=== PATIENT | female | born 1950 | race Caucasian/White ===

== ENCOUNTER 2017-11-01 09:39 | Inpatient (IN) | payer MEDICARE, OTHER ==
[2017-11-01 10:16] LABS: ADD MAN DIFF? NO
[2017-11-01 10:18] LABS: WHITE BLOOD COUNT 7.8 10^3/ul (4.8-10.8)
[2017-11-01 10:18] LABS: BASOPHIL # 0.1 10^3/ul (0.0-0.1); BASOPHILS % 0.6 % (0.0-2.0); EOSINOPHILS # 0.2 10^3/ul (0.0-0.5); EOSINOPHILS % 2.3 % (0.0-7.0); HEMOGLOBIN 9.8 g/dl (12.0-16.0); LYMPHOCYTES # 1.4 10^3/ul (0.8-2.9); LYMPHOCYTES % 18.5 % (15.0-51.0); MEAN CORPUSCULAR HEMOGLOBIN 29.8 pg (29.0-33.0); MEAN CORPUSCULAR HGB CONC 29.7 g/dl (32.0-37.0); MEAN CORPUSCULAR VOLUME 100.3 fl (82.0-101.0); MONOCYTE # 0.5 10^3/ul (0.3-0.9); MONOCYTES % 6.7 % (0.0-11.0); NEUTROPHIL # 5.6 10^3/ul (1.6-7.5); NEUTROPHILS % 71.5 % (39.0-77.0); PLATELET COUNT 283 10^3/UL (140-415); RED BLOOD COUNT 3.29 10^6/ul (4.20-5.40)
[2017-11-01 10:38] LABS: INR 0.92; PROTIME 12.4 Sec (11.9-14.9)
[2017-11-01 10:56] LABS: ALANINE AMINOTRANSFERASE 24 IU/L (13-69); ALBUMIN 3.8 g/dl (3.3-4.9); ALBUMIN/GLOBULIN RATIO 1.08; ALKALINE PHOSPHATASE 64 IU/L (42-121); ANION GAP 18 (8-16); ASPARTATE AMINO TRANSFERASE 16 IU/L (15-46); BLOOD UREA NITROGEN 75 mg/dl (7-20); CALCIUM 9.6 mg/dl (8.4-10.2); CARBON DIOXIDE 28 mmol/L (21-31); CHLORIDE 100 mmol/L (97-110); CREATININE 6.01 mg/dl (0.44-1.00); GLUCOSE 90 mg/dl (70-220); POTASSIUM 5.4 mmol/L (3.5-5.1); SODIUM 141 mmol/L (135-144); TOTAL PROTEIN 7.3 g/dl (6.1-8.1)
[2017-11-01 11:07] LABS: TROPONIN-I 0.014 ng/ml (0.00-0.12)
[2017-11-01 12:12] LABS: OCCULT BLOOD STOOL POSITIVE (NEGATIVE)
[2017-11-01] MEDS ORDERED: ACETAMINOPHEN 325 MG TAB PO (13:30)
[2017-11-01] MEDS ORDERED: ONDANSETRON 4 MG INJ IV ×2 (13:30→16:30)
[2017-11-01] MEDS ORDERED: morphine 2 MG INJ IV (16:30)
[2017-11-01] MEDS ORDERED: ZOLPIDEM 5 MG TAB PO (16:30)
[2017-11-01] MEDS ORDERED: NACL 0.9% 3 ML SYG IV (16:30)
[2017-11-01] MEDS ORDERED: morphine LIQ (10 MG/5 ML) CUP PO (17:00)
[2017-11-01] MEDS: DEXTROSE 5%-0.45% NACL 1,000 ML IV (17:27)
[2017-11-01] MEDS: HYDROCODONE/APAP (7.5/325) TAB PO ×2 (17:28→21:28)
[2017-11-01] MEDS ORDERED: GABAPENTIN 300 MG CAP PO (21:00)
[2017-11-01] MEDS: MINERAL OIL 133 ML ENEMA PR (21:25)
[2017-11-01] MEDS: PEG/ELECTROLYTES 4L BTL PO (21:25)
[2017-11-01] MEDS: NA POLYST SULFON 15 GM/60 ML BTL PO (21:26)
[2017-11-01] MEDS: ATORVASTATIN 40 MG TAB PO (21:27)
[2017-11-01] MEDS: LACTULOSE 30ML CUP PO ×3 (21:27→23:48)
[2017-11-01] MEDS: FUROSEMIDE 40 MG TAB PO (21:27)
[2017-11-01] MEDS: METOPROLOL 25 MG TAB PO (21:30)
[2017-11-02] MEDS: HYDROCODONE/APAP (7.5/325) TAB PO ×6 (01:10→22:16)
[2017-11-02] MEDS: LACTULOSE 30ML CUP PO ×5 (01:10→22:16)
[2017-11-02] MEDS: PANTOPRAZOLE (EC) 40 MG TAB PO (04:46)
[2017-11-02] MEDS: DEXTROSE 5%-0.45% NACL 1,000 ML IV ×2 (06:15→17:28)
[2017-11-02 06:46] LABS: ADD MAN DIFF? NO
[2017-11-02 06:52] LABS: BASOPHILS % 0.4 % (0.0-2.0); EOSINOPHILS # 0.2 10^3/ul (0.0-0.5); EOSINOPHILS % 2.2 % (0.0-7.0); HEMATOCRIT 31.4 % (37.0-47.0); HEMOGLOBIN 9.2 g/dl (12.0-16.0); LYMPHOCYTES # 1.7 10^3/ul (0.8-2.9); LYMPHOCYTES % 19.3 % (15.0-51.0); MEAN CORPUSCULAR HEMOGLOBIN 29.5 pg (29.0-33.0); MEAN CORPUSCULAR HGB CONC 29.3 g/dl (32.0-37.0); MEAN CORPUSCULAR VOLUME 100.6 fl (82.0-101.0); MEAN PLATELET VOLUME 10.1 fl (7.4-10.4); MONOCYTE # 0.5 10^3/ul (0.3-0.9); NEUTROPHIL # 6.4 10^3/ul (1.6-7.5); NEUTROPHILS % 71.7 % (39.0-77.0); PLATELET COUNT 270 10^3/UL (140-415); RED BLOOD COUNT 3.12 10^6/ul (4.20-5.40); RED CELL DISTRIBUTION WIDTH 18.8 % (11.5-14.5)
[2017-11-02 07:23] LABS: ALANINE AMINOTRANSFERASE 21 IU/L (13-69); ALBUMIN 3.6 g/dl (3.3-4.9); ALBUMIN/GLOBULIN RATIO 1.16; ALKALINE PHOSPHATASE 64 IU/L (42-121); ANION GAP 17 (8-16); ASPARTATE AMINO TRANSFERASE 16 IU/L (15-46); BLOOD UREA NITROGEN 72 mg/dl (7-20); CARBON DIOXIDE 26 mmol/L (21-31); CHLORIDE 107 mmol/L (97-110); CREATININE 5.78 mg/dl (0.44-1.00); GLUCOSE 93 mg/dl (70-220); POTASSIUM 4.8 mmol/L (3.5-5.1); SODIUM 145 mmol/L (135-144); TOTAL PROTEIN 6.7 g/dl (6.1-8.1)
[2017-11-02] MEDS: METOPROLOL 25 MG TAB PO ×2 (09:00→22:16)
[2017-11-02] MEDS: FUROSEMIDE 40 MG TAB PO ×2 (09:00→22:17)
[2017-11-02 11:52] LABS: HEPATITIS B SURFACE ANTIGEN NEGATIVE (NEGATIVE)
[2017-11-02] MEDS: HEPARIN 1000 UNITS/ML 10 ML INJ CATHETER (15:20)
[2017-11-02] MEDS: ATORVASTATIN 40 MG TAB PO (22:16)
[2017-11-03] MEDS: HYDROCODONE/APAP (7.5/325) TAB PO ×7 (01:00→22:08)
[2017-11-03] MEDS: DEXTROSE 5%-0.45% NACL 1,000 ML IV ×3 (06:06→22:13)
[2017-11-03] MEDS: PANTOPRAZOLE (EC) 40 MG TAB PO (06:10)
[2017-11-03] MEDS: HEPARIN 1000 UNITS/ML 10 ML INJ CATHETER (08:04)
[2017-11-03] MEDS: FUROSEMIDE 40 MG TAB PO ×2 (08:53→22:08)
[2017-11-03] MEDS: METOPROLOL 25 MG TAB PO ×2 (08:53→22:09)
[2017-11-03] MEDS ORDERED: MIDAZOLAM 1 MG/ML 2 ML INJ (16:35)
[2017-11-03] MEDS ORDERED: LIDOCAINE 2% (SDV) 5 ML INJ (16:35)
[2017-11-03] MEDS ORDERED: PROPOFOL 20 ML (16:35)
[2017-11-03] MEDS ORDERED: FENTAnyl 50 MCG/ML VIAL (16:35)
[2017-11-03] MEDS: ATORVASTATIN 40 MG TAB PO (22:08)
[2017-11-04] MEDS: HYDROCODONE/APAP (7.5/325) TAB PO ×6 (01:00→23:09)
[2017-11-04] MEDS: DEXTROSE 5%-0.45% NACL 1,000 ML IV ×2 (06:25→11:42)
[2017-11-04] MEDS: PANTOPRAZOLE (EC) 40 MG TAB PO (06:46)
[2017-11-04 07:16] LABS: ADD MAN DIFF? NO
[2017-11-04 07:20] LABS: WHITE BLOOD COUNT 7.1 10^3/ul (4.8-10.8)
[2017-11-04 07:20] LABS: BASOPHILS % 0.4 % (0.0-2.0); EOSINOPHILS # 0.2 10^3/ul (0.0-0.5); EOSINOPHILS % 2.9 % (0.0-7.0); HEMATOCRIT 29.9 % (37.0-47.0); HEMOGLOBIN 8.9 g/dl (12.0-16.0); LYMPHOCYTES # 1.2 10^3/ul (0.8-2.9); LYMPHOCYTES % 17.4 % (15.0-51.0); MEAN CORPUSCULAR HEMOGLOBIN 30.2 pg (29.0-33.0); MEAN CORPUSCULAR HGB CONC 29.8 g/dl (32.0-37.0); MEAN CORPUSCULAR VOLUME 101.4 fl (82.0-101.0); MEAN PLATELET VOLUME 9.8 fl (7.4-10.4); MONOCYTE # 0.5 10^3/ul (0.3-0.9); MONOCYTES % 6.7 % (0.0-11.0); NEUTROPHIL # 5.2 10^3/ul (1.6-7.5); NEUTROPHILS % 72.3 % (39.0-77.0); PLATELET COUNT 230 10^3/UL (140-415); RED BLOOD COUNT 2.95 10^6/ul (4.20-5.40); RED CELL DISTRIBUTION WIDTH 18.9 % (11.5-14.5)
[2017-11-04 07:45] LABS: ANION GAP 12 (8-16); BLOOD UREA NITROGEN 20 mg/dl (7-20); CALCIUM 8.6 mg/dl (8.4-10.2); CARBON DIOXIDE 31 mmol/L (21-31); CHLORIDE 104 mmol/L (97-110); GLUCOSE 89 mg/dl (70-220); POTASSIUM 4.5 mmol/L (3.5-5.1); SODIUM 142 mmol/L (135-144)
[2017-11-04] MEDS: FUROSEMIDE 40 MG TAB PO ×2 (08:52→21:35)
[2017-11-04] MEDS: METOPROLOL 25 MG TAB PO ×2 (09:00→21:36)
[2017-11-04] MEDS: ATORVASTATIN 40 MG TAB PO (21:35)
[2017-11-05 06:06] LABS: ADD MAN DIFF? NO
[2017-11-05 06:09] LABS: WHITE BLOOD COUNT 6.7 10^3/ul (4.8-10.8)
[2017-11-05 06:09] LABS: BASOPHILS % 0.4 % (0.0-2.0); EOSINOPHILS # 0.3 10^3/ul (0.0-0.5); EOSINOPHILS % 3.7 % (0.0-7.0); HEMATOCRIT 27.9 % (37.0-47.0); HEMOGLOBIN 8.3 g/dl (12.0-16.0); LYMPHOCYTES # 1.6 10^3/ul (0.8-2.9); LYMPHOCYTES % 23.5 % (15.0-51.0); MEAN CORPUSCULAR HEMOGLOBIN 30.1 pg (29.0-33.0); MEAN CORPUSCULAR HGB CONC 29.7 g/dl (32.0-37.0); MEAN CORPUSCULAR VOLUME 101.1 fl (82.0-101.0); MEAN PLATELET VOLUME 10.2 fl (7.4-10.4); MONOCYTE # 0.5 10^3/ul (0.3-0.9); NEUTROPHIL # 4.4 10^3/ul (1.6-7.5); NEUTROPHILS % 65.1 % (39.0-77.0); PLATELET COUNT 228 10^3/UL (140-415); RED BLOOD COUNT 2.76 10^6/ul (4.20-5.40); RED CELL DISTRIBUTION WIDTH 18.6 % (11.5-14.5)
[2017-11-05] MEDS: PANTOPRAZOLE (EC) 40 MG TAB PO (06:30)
[2017-11-05] MEDS: HYDROCODONE/APAP (7.5/325) TAB PO ×3 (06:32→20:32)
[2017-11-05 06:41] LABS: ANION GAP 12 (8-16); BLOOD UREA NITROGEN 29 mg/dl (7-20); CALCIUM 8.5 mg/dl (8.4-10.2); CARBON DIOXIDE 29 mmol/L (21-31); CHLORIDE 105 mmol/L (97-110); CREATININE 4.13 mg/dl (0.44-1.00); GLUCOSE 79 mg/dl (70-220); POTASSIUM 4.7 mmol/L (3.5-5.1); SODIUM 141 mmol/L (135-144)
[2017-11-05] MEDS: METOPROLOL 25 MG TAB PO ×2 (09:00→20:31)
[2017-11-05] MEDS: FUROSEMIDE 40 MG TAB PO ×2 (09:00→20:31)
[2017-11-05] MEDS: HEPARIN 1000 UNITS/ML 10 ML INJ CATHETER (11:54)
[2017-11-05 18:12] LABS: ADD MAN DIFF? NO
[2017-11-05 18:15] LABS: BASOPHILS % 0.6 % (0.0-2.0); EOSINOPHILS # 0.2 10^3/ul (0.0-0.5); EOSINOPHILS % 3.6 % (0.0-7.0); HEMATOCRIT 29.6 % (37.0-47.0); HEMOGLOBIN 8.9 g/dl (12.0-16.0); LYMPHOCYTES # 1.7 10^3/ul (0.8-2.9); LYMPHOCYTES % 25.2 % (15.0-51.0); MEAN CORPUSCULAR HEMOGLOBIN 29.7 pg (29.0-33.0); MEAN CORPUSCULAR HGB CONC 30.1 g/dl (32.0-37.0); MEAN CORPUSCULAR VOLUME 98.7 fl (82.0-101.0); MONOCYTE # 0.4 10^3/ul (0.3-0.9); MONOCYTES % 6.1 % (0.0-11.0); NEUTROPHIL # 4.3 10^3/ul (1.6-7.5); NEUTROPHILS % 64.4 % (39.0-77.0); PLATELET COUNT 237 10^3/UL (140-415); RED CELL DISTRIBUTION WIDTH 18.3 % (11.5-14.5)
[2017-11-05 18:15] LABS: WHITE BLOOD COUNT 6.7 10^3/ul (4.8-10.8)
[2017-11-05] MEDS: ATORVASTATIN 40 MG TAB PO (20:31)
[2017-11-06 06:12] LABS: ADD MAN DIFF? NO
[2017-11-06 06:24] LABS: BASOPHILS % 0.5 % (0.0-2.0); EOSINOPHILS # 0.3 10^3/ul (0.0-0.5); EOSINOPHILS % 4.2 % (0.0-7.0); HEMATOCRIT 29.3 % (37.0-47.0); HEMOGLOBIN 8.8 g/dl (12.0-16.0); LYMPHOCYTES # 1.5 10^3/ul (0.8-2.9); LYMPHOCYTES % 22.2 % (15.0-51.0); MEAN CORPUSCULAR HEMOGLOBIN 29.6 pg (29.0-33.0); MEAN CORPUSCULAR VOLUME 98.7 fl (82.0-101.0); MEAN PLATELET VOLUME 9.9 fl (7.4-10.4); MONOCYTE # 0.5 10^3/ul (0.3-0.9); MONOCYTES % 6.8 % (0.0-11.0); NEUTROPHIL # 4.4 10^3/ul (1.6-7.5); PLATELET COUNT 216 10^3/UL (140-415); RED BLOOD COUNT 2.97 10^6/ul (4.20-5.40); RED CELL DISTRIBUTION WIDTH 18.2 % (11.5-14.5)
[2017-11-06 06:24] LABS: WHITE BLOOD COUNT 6.7 10^3/ul (4.8-10.8)
[2017-11-06] MEDS: PANTOPRAZOLE (EC) 40 MG TAB PO (06:36)
[2017-11-06] MEDS: HYDROCODONE/APAP (7.5/325) TAB PO ×3 (06:37→20:35)
[2017-11-06 06:42] LABS: ANION GAP 11 (8-16); BLOOD UREA NITROGEN 25 mg/dl (7-20); CALCIUM 8.6 mg/dl (8.4-10.2); CARBON DIOXIDE 31 mmol/L (21-31); CHLORIDE 103 mmol/L (97-110); CREATININE 3.46 mg/dl (0.44-1.00); GLUCOSE 97 mg/dl (70-220); POTASSIUM 4.4 mmol/L (3.5-5.1); SODIUM 141 mmol/L (135-144)
[2017-11-06] MEDS: METOPROLOL 25 MG TAB PO ×2 (09:00→20:34)
[2017-11-06] MEDS: FUROSEMIDE 40 MG TAB PO ×2 (09:54→20:33)
[2017-11-06] MEDS: SENNA TAB PO (20:33)
[2017-11-06] MEDS: ATORVASTATIN 40 MG TAB PO (20:34)
== END 2017-11-06 21:43 | DRG 377 ==
LOC: PP2 15:29 → E/R 09:39 → MS3 13:26 → PP2 19:51
PROC: 0DBP8ZX Excision of Rectum, Via Natural or Artificial Opening Endoscopic, Diagnostic (ICD-10-PCS; principal; 2017-11-03 15:30)
PROC: 0DB78ZX Excision of Stomach, Pylorus, Via Natural or Artificial Opening Endoscopic, Diagnostic (ICD-10-PCS; 2017-11-03 15:30)
PROC: 5A1D70Z Performance of Urinary Filtration, Intermittent, Less than 6 Hours Per Day (ICD-10-PCS; 2017-11-03 15:50)
PROC: 5A1D70Z Performance of Urinary Filtration, Intermittent, Less than 6 Hours Per Day (ICD-10-PCS; 2017-11-03 15:50)
PROC: 5A1D70Z Performance of Urinary Filtration, Intermittent, Less than 6 Hours Per Day (ICD-10-PCS; 2017-11-03 15:50)
DX: K92.2 Gastrointestinal hemorrhage, unspecified (principal); N18.6 End stage renal disease; I13.2 Hypertensive heart and chronic kidney disease with heart failure and with stage 5 chronic kidney disease, or end stage renal disease; J44.9 Chronic obstructive pulmonary disease, unspecified; E87.5 Hyperkalemia; I50.30 Unspecified diastolic (congestive) heart failure; Z99.2 Dependence on renal dialysis; E66.9 Obesity, unspecified; Z68.37 Body mass index [BMI] 37.0-37.9, adult; E78.5 Hyperlipidemia, unspecified; I25.10 Atherosclerotic heart disease of native coronary artery without angina pectoris; Z95.1 Presence of aortocoronary bypass graft; D50.9 Iron deficiency anemia, unspecified; I25.2 Old myocardial infarction; Z87.891 Personal history of nicotine dependence; M17.0 Bilateral primary osteoarthritis of knee; K29.80 Duodenitis without bleeding; K29.70 Gastritis, unspecified, without bleeding; K62.89 Other specified diseases of anus and rectum; K64.8 Other hemorrhoids; K64.4 Residual hemorrhoidal skin tags; D53.9 Nutritional anemia, unspecified
CPT/HCPCS: 36415; 71045; 80048; 80053; 82270; 84484; 85025; 85610; 85730; 87340; 88305; 88312; 90935; 93005; 99285-25